=== PATIENT | male | born 2000 | race Caucasian/White ===

== ENCOUNTER → 2022-06-25 20:30 | Outpatient (REF) | payer MEDICAID, SELFPAY | LOC: HO.SL 20:30 | PROVIDERS: PCP Internal Medicine Geriatric Medicine; Visit Provider Internal Medicine Geriatric Medicine | DX: G47.33 Obstructive sleep apnea (adult) (pediatric) (principal) | CPT/HCPCS: 95811 ==

== ENCOUNTER 2022-10-16 14:35 | Outpatient (REF) | payer MEDICAID, SELFPAY ==
[2022-10-16 16:15] LABS: MANUAL DIFF FLAG NO
[2022-10-16 16:32] LABS: Basophils Percent Auto 0.8 % (0-2); Eosinophils Absolute Auto 0.1 X10*3/uL (0.0-0.4); Eosinophils Percent Auto 1.5 % (0-4); Hemoglobin 13.1 g/dl (14.0-18.0); Imm Gran Abs Auto 0.05 X10*3/uL (0.00-0.03); Lymphocytes Absolute Auto 2.1 X10*3/uL (1.2-4.9); Lymphocytes Percent Auto 43.6 % (20-40); Mean Corpuscular HGB Conc 29.8 g/dl (31.0-36.0); Mean Corpuscular Hemoglobin 21.1 pg (27.0-33.0); Mean Corpuscular Volume 70.9 fL (80.0-98.0); Mean Platelet Volume 11.2 fL (9.4-12.4); Monocytes Absolute Auto 0.4 X10*3/uL (0.1-1.2); Neutrophils Absolute Auto 2.1 x10*3/uL (2.0-8.3); Neutrophils Percent Auto 44.1 % (45-73); Platelet Count 287 X10*3/uL (160-400); Red Blood Count 6.21 X10*6/uL (4.60-5.80); Red Cell Distribution Width 16.6 % (11.0-16.0); White Blood Count 4.8 X10*3/uL (4.8-10.8)
[2022-10-16 18:28] LABS: Alanine Aminotransferase 47 U/L (0-40); Albumin Level 4.4 g/dL (3.5-5.0); Alkaline Phosphatase 95 U/L (39-117); Anion Gap 15 (12-20); Aspartate Amino Transferase 28 U/L (5-37); Bilirubin Total 0.4 mg/dL (0.0-1.0); Blood Urea Nitrogen 10 mg/dL (9-16); Calcium 9.8 mg/dL (8.4-10.2); Carbon Dioxide 24 mmol/L (22-29); Chloride 104 mmol/L (96-108); Cholesterol 171 mg/dL; Estimated Glomerular Filt Rate > 60; Glucose Random 93 mg/dL (60-115); HDL Cholesterol 45 mg/dL; LDL Cholesterol Calculated 96 mg/dl; Potassium 4.1 mmol/L (3.3-5.1); Sodium 139 mmol/L (135-145); Total Protein 7.7 g/dL (6.5-8.0); Triglycerides 152 mg/dL
[2022-10-16 18:46] LABS: TSH reflex Free T4 2.69 uIU/mL (0.32-4.0)
== END 2022-10-16 14:36 | disposition home or self-care (01) ==
LOC: HO.HHCL 14:35
PROVIDERS: Visit Provider Internal Medicine Geriatric Medicine
DX: Z13.220 Encounter for screening for lipoid disorders (principal); Z13.1 Encounter for screening for diabetes mellitus; E66.01 Morbid (severe) obesity due to excess calories
CPT/HCPCS: 36415; 80053; 80061; 84443; 85025

== ENCOUNTER 2024-03-27 11:38 | Outpatient (REF) | payer MEDICAID, SELFPAY ==
[2024-03-27 15:28] LABS: CT PCR NOT DETECTED (Not Detect.); NG PCR NOT DETECTED (Not Detect.)
== END 2024-03-27 11:39 | disposition home or self-care (01) ==
LOC: HO.HHCL 11:38
PROVIDERS: Visit Provider Internal Medicine Geriatric Medicine
DX: Z00.00 Encounter for general adult medical examination without abnormal findings (principal); Z11.3 Encounter for screening for infections with a predominantly sexual mode of transmission
CPT/HCPCS: 87491; 87591

== ENCOUNTER 2024-03-30 10:16 | Outpatient (REF) | payer MEDICAID, SELFPAY ==
[2024-03-30 11:37] LABS: MANUAL DIFF FLAG NO
[2024-03-30 11:41] LABS: Basophils Percent Auto 0.7 % (0-2); Eosinophils Absolute Auto 0.1 X10*3/uL (0.0-0.4); Eosinophils Percent Auto 1.9 % (0-4); Hematocrit 40.4 % (42.0-52.0); Hemoglobin 12.7 g/dl (14.0-18.0); Imm Gran Abs Auto 0.06 X10*3/uL (0.00-0.03); Imm Gran Pct Auto 1.1 % (0.0-0.4); Mean Corpuscular HGB Conc 31.4 g/dl (31.0-36.0); Mean Corpuscular Hemoglobin 21.5 pg (27.0-33.0); Mean Corpuscular Volume 68.2 fL (80.0-98.0); Mean Platelet Volume 10.6 fL (9.4-12.4); Monocytes Absolute Auto 0.5 X10*3/uL (0.1-1.2); Monocytes Percent Auto 9.2 % (2-11); Neutrophils Percent Auto 52.1 % (45-73); Platelet Count 252 X10*3/uL (160-400); Red Blood Count 5.92 X10*6/uL (4.60-5.80); Red Cell Distribution Width 16.1 % (11.0-16.0); White Blood Count 5.7 X10*3/uL (4.8-10.8)
[2024-03-30 12:16] LABS: Alanine Aminotransferase 43 U/L (0-40); Albumin Level 4.3 g/dL (3.5-5.0); Alkaline Phosphatase 99 U/L (39-117); Anion Gap 11 (12-20); Aspartate Amino Transferase 25 U/L (5-37); Bilirubin Total 0.2 mg/dL (0.0-1.0); Blood Urea Nitrogen 13 mg/dL (9-16); Calcium 8.7 mg/dL (8.4-10.2); Carbon Dioxide 23 mmol/L (22-29); Chloride 108 mmol/L (96-108); Cholesterol 159 mg/dL (<200); Estimated Glomerular Filt Rate > 60; Glucose Random 104 mg/dL (60-115); HDL Cholesterol 47 mg/dL (>40); LDL Cholesterol Calculated 90 mg/dL (<100); Sodium 138 mmol/L (135-145); Total Protein 7.6 g/dL (6.5-8.0); Triglycerides 114 mg/dL (<150)
[2024-03-30 12:35] LABS: HBS Num1 1.79 mIU/mL (0-7.99); HBsAGNum1 0.41 S/CO (0.00-0.99); HIV AB/AG Nonreactive (Nonreactive); HIV Num 1 0.07 S/CO (0.00-0.99); Hepatitis B Surface Antigen Negative (Negative); ~HepC Num1 0.11 S/CO (0.00-0.79); ~Hepatitis B Surface Antibody NONREACTIVE (Nonreactive); ~Hepatitis C Antibody Nonreactive (Nonreactive)
[2024-03-30 13:50] LABS: TSH reflex Free T4 2.65 uIU/mL (0.32-4.0)
== END 2024-03-30 10:17 | disposition home or self-care (01) ==
LOC: HO.HHCL 10:16
PROVIDERS: Visit Provider Internal Medicine Geriatric Medicine
DX: Z00.00 Encounter for general adult medical examination without abnormal findings (principal)
CPT/HCPCS: 36415; 80053; 80061; 84443; 85025; 86592; 86706; 86803; 87340; 87389

== ENCOUNTER 2024-03-31 09:30 | Outpatient (REF) | payer MEDICAID, SELFPAY ==
[2024-04-02 13:18] LABS: RPR Rapid Plasma Reagin NON-REACTIVE (NON-REACTIVE)
== END 2024-03-31 09:31 | disposition home or self-care (01) ==
LOC: HO.HHCL 09:30
PROVIDERS: Visit Provider Internal Medicine Geriatric Medicine
DX: Z00.00 Encounter for general adult medical examination without abnormal findings (principal)
CPT/HCPCS: 36415; 86592

== ENCOUNTER 2024-08-03 12:48 | Outpatient (REF) | payer MEDICAID, SELFPAY ==
--- OUTSIDE RECORDS SUMMARY | 2024-08-03 15:08 | XMS_ITS | Encounter Summary ---
Author Organization [employer] Address [address] [place] [address] 7 [place] [address] Care Team Providers Care Capital Project Engineer Name Role Phone Name, Sky FONSECA Primary Care Provider [phone] Hugo Bacon Unavailable Unavailable Reason for Visit * Reason Onset Date Comments Med Refill 07/22/2024 Encounter Details Date Type Department Care Team (Late st Contact Info) Description 07/22/2024 Telephone [facility] MEDICINE [address] [place] [address] Name, MD Sky [address] [place] [address] Med Refill Social History Tobacco Use Types Packs/Day Years Used Date Smoking Tobacco: Former Cigarettes Smokeless Tobacco: Never Alcohol Use Standard Drinks/Week Comments Yes 0 (1 standard drink = 0.6 oz pur e alcohol) socially Depression Answer Date Recorded Patient Health Questionnaire-9 Score 0 10/17/2023 Patient Health Questionnaire-9 Score 0 10/17/2023 Last PHQ-9: Questionnaire Data Not on file 0 10/17/2023 Housing Stability Answer Date Recorded What is your housing situation today? I have bill quentin 01/21/[address] you li ve. Do you have problems with any of the following? None of the above 01/21/2023 Food Insecurity Answer Date Recorded Within the past 12 months, y ou worried that your food would run out before you got money to buy more: Never True 01/21/2023 Within the past 12 months,th e food you bought just didn't last and you didn't have enough money to get more: Never True Transportation Answer Date Recorded In the past 12 months, has l ack of transportation kept you from medical appts, meetings, work or from getting things needed for daily living? No 01/21/2023 Utilities Answer Date Recorded In the past 12 months, has t he electric, gas, oil or water company threatened to shut off services in your home? No 01/21/2023 Depression Answer Date Recorded Patient Health Questionnaire-2 Score 0 10/17/2023 Sex and Gender Information Value Date Recorded Sex Assigned at Male 02/05/2022 10:19 AM EDT Legal Sex Male 10:19 AM EDT Gender Identity Male 02/05/2022 10:19 AM EDT Sexual Orientation Straight 02/05/2022 10 :19 AM EDT documented as of this encounter Miscellaneous Notes * Telephone Encounter - Juliann Grimes LPN - 07/22/2024 11:59 AM EDT Medication to soon for refill CLIENT STRATEGIST checked on 07/22/24 last filled on 06/30/24 #30. * Telephone Encounter - Nicole Auguste - 07/22/2024 11:54 AM EDT TC from pt requesting medication refill. Medications needing refill : Concerta 54 MG CR tablet To be sent to: [facility] documented in this encounter Plan of Treatment Upcoming Encounters Date Type Department Care Team (Late st Contact Info) Description 02/04/2025 1:00 PM EDT Office Visit [facility] ADULT DENTAL [address] [facility] [place] [address] Corinne Jefferson documented as of this encounter Visit Diagnoses Not on filedocumented in this encounter Additional Health Concerns Assessment Noted Time PHQ-9 Depression Total Score: 0 10/17/19 24 3:53 PM EDT documented as of this encounter Care Teams Capital Project Engineer Relationship Specialty Start Date End Date Name, MD Sky [address] [place] [address] PCP - General Family Medicine 11/24/18 Hugo Bacon FNP [address] [place] [address] Nurse Practitioner Family Medicine 03/04/23 documented as of this encounter
--- OUTSIDE RECORDS SUMMARY | 2024-08-03 15:08 | XMS_ITS | Encounter Summary ---
Author Organization [employer] Address [address] [place] [address] 7 [place] [address] Care Team Providers Care Roller Name Role Phone Name, Sky FONSECA Primary Care Provider [phone] Hugo Bacon Unavailable Unavailable Reason for Visit * Reason Onset Date Comments CHART PREP 07/31/2024 Encounter Details Date Type Department Care Team ([facility] st Contact Info) Description 07/31/2024 Telephone [facility] MEDICINE [address] [place] [address] Name, MD Sky [address] [place] [address] CHART PREP Social History Tobacco Use Types Packs/Day Years [...] your housing situation today? I have bill saavedra 01/21/[address] you li [...] encounter Miscellaneous Notes * Telephone Encounter - Arelis Herrera MA - 07/31/2024 11:26 AM EDT Chart Prep Labs: not done from 04/03/24 called pt for a lab reminder pt stated will do hem on Saturday Images: not applicable Referrals: not applicable Vaccines due: yes He B, Pneumo Screenings: not applicable Overdue care gaps: SDOH, PHQ-9, BEAU-7, and Disability screen documented in this encounter Plan of Treatment Upcoming Encounters Date Type Department Care Team (Late st Contact Info) Description 02/04/2025 1:00 PM EDT Office Visit [facility] ADULT DENTAL [address] [place] [address] Corinne Jefferson documented as of this encounter Visit Diagnoses Not on filedocumented in this encounter Additional Health Concerns Assessment Noted Time PHQ-9 Depression Total Score: 0 10/17/19 24 3:53 PM EDT documented as of this encounter Care Teams Roller Relationship Specialty Start Date End Date Name, MD Sky [address] [place] [address] PCP - General Family Medicine 11/24/18 Hugo Bacon FNP [address] [facility] [place] [address] Nurse Practitioner Family Medicine 03/04/23 documented as of this encounter
--- OUTSIDE RECORDS SUMMARY | 2024-08-03 15:08 | XMS_ITS | Encounter Summary ---
Author Organization [facility] Address [address] [place] [address] Care Team Providers Care Blender / Cook Name Role Phone Name, Sky FONSECA Primary Care Provider [phone] Hugo Bacon Unavailable Unavailable Encounter Details Date Type Department Care Team (Latest Contact Info) Description 03/18/2019 Abstract [facility] CONVERSIONS Dental, Provider, DDS Social History Tobacco Use Types Packs/Day Years Used Date Smoking Tobacco: Never Assessed Sex and Gender Information Value Date Recorded Sex Assigned at Male 02/05/2022 10:19 AM EDT Legal Sex Male 10:19 AM EDT Gender Identity Male 02/05/2022 10:19 AM EDT Sexual Orientation Straight 02/05/2022 10 :19 AM EDT documented as of this encounter Plan of Treatment Upcoming Encounters Date Type Department Care Team (Late st Contact Info) Description 02/04/2025 1:00 PM EDT Office Visit [facility] ADULT DENTAL [address] [place] [address] Corinne Jefferson documented as of this encounter Visit Diagnoses Not on filedocumented in this encounter Care Teams Blender / Cook Relationship Specialty Start Date End Date Name, MD Sky [address] [place] [address] PCP - General Family Medicine 11/24/18 Hugo Bacon FNP [address] [place] [address] Nurse Practitioner Family Medicine 03/04/23 documented as of this encounter
--- OUTSIDE RECORDS SUMMARY | 2024-08-03 15:08 | XMS_ITS | Clinical Summary ---
Author Organization [facility] Address [address] [place] [address] Care Team Providers Care Scientific Informatics Analyst Name Role Phone Unavailable Primary Care Provider Unavailabl e Source Comments PLEASE NOTE, if this patient is a minor, it may be UNLAWFUL to discuss sensitive information that is contained in these records (such as FAMILY PLANNING, MENTAL HEALTH or SUBSTANCE ABUSE) with the minor patient's parent or other person without the patient's specific authorization.[facility] Allergies Active Allergy Reactions Criticality Noted Date Comments Aspirin 12/24/2023 Penicillins 12/24/2023 Medications acetaminophen (TYLENOL) 500 mg tablet Take 500 mg by mouth every 4 to 6 (four to six) hours as needed 4 Active albuterol HFA 90 mcg/actuation inhaler Inhale 2 Puffs into the lungs every 4 (four) hours 2 Active methylphenidate HCl 18 mg ER tabletIndications: Attention deficit hyperactivity disorder (ADHD), predominantly inattentive type Take 1 tab po q afternoon 30 Tablet 4 Active methylphenidate HCl 54 mg ER tabletIndications: Attention deficit hyperactivity disorder (ADHD), predominantly inattentive type Take 1 Tablet by mouth every morning before breakfast 30 Tablet 4 Active Active Problems Problem Noted Date Diagnosed Date Attention deficit disorder 03/11/2023 Overview (11/26/2023): Last Assessment & Plan: Symptoms began in childhood, occur in multiple settings. Never treated. Strong family history attention problems. R/O mood disorder, with some days awakens without motivation, other times can clean the room at 2 am. Also appetite varies markedly from day to day. Student at [employer], more challenging academic environment. Has worked with student support services. He found the Guanfacine 1 mg at bedtime helps him sleep and wake up refreshed, but it has not helped his concentration or attention. Strattera was not helpful. Had partial response to Methylphenidate ER 20 mg once daily in the morning, will now increase to Methylphenidate ER 36 mg daily Reviewed that this was a controlled substance, if lost or stolen would not be replaced. Do not share with others. Take in the morning only to avoid sleep problems, and have a nutritious meal prior to dose. Continue with student support services. Since this provider will be retiring, patient will be referred to new [facility] psychiatric prescriber. Patient is aware these appointments will also be via televisits, and that the provider is not employed by [facility]. He gives verbal permission to share protected health information. Any issues or concerns call the health center. All his questions were answered and I have wished him well. He agrees with the plan. Assessment & Plan (03/20/2024 10:07 AM EST): A: stable PLAN: Will adjust methylphenidate to 56 mg and 18 mg, highest FDA approved dose for ADHD. Pt to transfer care back to PCP at [facility]. Assessment & Plan (02/18/2024 3:38 PM EST): A: worsening of sxs on lower dose bid. PLAN: continue methylphenidate 54 mg qam and 36 mg q afternoon for ADHD. Monitor blood pressure. Assessment & Plan (01/21/2024 10:57 AM EDT): Some improvement but feels med wearing off around noon, still. Will provide 36 mg po qam and q 1 pm. Assessment & Plan (12/24/2023 9:33 AM EDT): Some improvement but feels med wearing off around noon. Will increase dose and reassess in 4 weeks. Concerta 54 mg po qam. Assessment & Plan (11/28/2023 4:32 PM EDT): Treat ADHD, wants to succeed academically. Med helpful for now; unsure if adequate with studies- will see once school starts. Pt declines therapy at this time. Mild intermittent asthma ([facility]) 09/19/2022 Morbid obesity ([facility]) 09/19/2022 Assessment & Plan (01/21/2024 10:57 AM EDT): Walking, taking stairs instead of elevators, eating healthy food. JAMEL (obstructive sleep apnea) 09/19/2022 Assessment & Plan (01/21/2024 10:56 AM EDT): Wearing c-pap nightly with good effect Assessment & Plan (12/24/2023 9:32 AM EDT): Wearing c-pap nightly with good effect Anemia 09/19/2022 Acne 09/19/2022 Mixed anxiety and depressive disorder 09/19/2022 Assessment & Plan (01/21/2024 10:58 AM EDT): Stable at this time. Will continue therapy, self care. Monitor for SAD [per pt hx]. Assessment & Plan (12/24/2023 9:31 AM EDT): Stable at this time. Will continue therapy, self care. Monitor for SAD [per pt hx]. Assessment & Plan (11/28/2023 4:32 PM EDT): Denies current depressed mood, no acute anxiety. Will monitor. Social History Tobacco Use Types Packs/Day Years Used Date Smoking Tobacco: Never Assessed Social Connections Answer Date Recorded Connectedness 0 12/24/2023 Financial Resource Strain Answer Date R ecorded Financial Resource Strain 0 2023 Stress Answer Date Recorded Stress 0 11/19/2023 Physical Activity Answer Date Recorded Physical Activity 0 11/19/2023 Food Insecurity Answer Date Recorded Food 0 01/02/2024 Transportation Needs Answer Date Record ed Transportation 0 11/19/2023 Housing Stability Answer Date Recorded Housing 0 11/19/2023 Safety and Environment Answer Date [place] rded Safety 0 11/19/2023 Utilities Answer Date Recorded Utilities 0 11/19/2023 Employment Answer Date Recorded Stress 0 12/24/2023 Sex and Gender Information Value Date Recorded Sex Assigned at Male 11/19/2023 7:30 AM PDT Legal Sex Male 7:30 AM PDT Gender Identity Male 11/19/2023 7:30 AM PDT Sexual Orientation Not on file Plan of Treatment Health Maintenance Due Date Last Done Comments Anxiety Screening 1999 Depression Monitoring 1999 Hepatitis C Screening 1999 Tobacco Screening 1999 Imm-Varicella (1 of 2 - 13+ 2-dose series) 2012 Imm-HPV (1 - Male 3-dose series) 2014 Hypertension Screening (#1) 2017 Imm-DTaP/Tdap/Td (1 - Tdap) 2018 Imm-Hepatitis B (1 of 3 - 19 + 3-dose series) 2018 Imm-Pneumococcal (1 of 2 - PCV) 2018 [id number] ( - season) 2023 021, 03/14/2021 Imm-Influenza (#1) 2023 Alcohol and Drug Screen 04/08/2024 HIV Screening Completed 09/21/2021, 09/21/2021 Insurance [place] [facility]
--- OUTSIDE RECORDS SUMMARY | 2024-08-03 15:08 | XMS_ITS | Encounter Summary ---
Author Organization [employer] [facility] Address [address] [place] [address] Care Team Providers Care Didactic Instructor Name Role Phone Name, Sky FONSECA Primary Care Provider [phone] Hugo Bacon Unavailable Unavailable Encounter Details Date Type Department Care Team (Latest Contact Info) Description 12/29/2018 Abstract [facility] CONVERSIONS Dental, Provider, DDS Social History Tobacco [...] Description 02/04/2025 1:00 PM EDT Office Visit [facility] ADULT DENTAL [address] [place] [address] Corinne Jefferson documented as of this encounter Visit Diagnoses Not on filedocumented in this encounter Care Teams Didactic Instructor Relationship Specialty Start Date End Date Name, MD Sky [address] [place] [address] PCP - General Family Medicine 11/24/18 Hugo Bacon FNP [address] [place] [address] Nurse Practitioner Family Medicine 03/04/23 documented as of this encounter
--- OUTSIDE RECORDS SUMMARY | 2024-08-03 15:08 | XMS_ITS | Encounter Summary ---
Author Organization [employer] Address [address] [place] [address] 7 [place] [address] Care Team Providers Care Videogame Tester Name Role Phone Name, Sky FONSECA Primary Care Provider [phone] Hugo Bacon Unavailable Unavailable Reason for Visit * Reason Comments Follow-up Encounter Details Date Type Department Care Team ([facility] st Contact Info) Description 08/03/2024 1:45 PM EDT Office Visit [facility] MEDICINE [address] [place] [address] Name, MD Sky [address] [place] [address] Mild intermittent asthma without complication (Primary Dx); JAMEL (obstructive sleep apnea); Morbid obesity (CMS/HCC); Anemia, unspecified type; Attention deficit disorder, unspecified type Social History Tobacco Use Types Packs/Day Years Used Date Smoking Tobacco: Former Cigarettes Smokeless Tobacco: Never Tobacco Cessation:Counseling Given: Not Answered Alcohol Use Standard Drinks/Week Comments Yes 0 (1 standard drink = 0.6 oz pur e alcohol) socially Depression Answer Date Recorded Patient Health Questionnaire-9 Score 0 10/17/2023 Patient Health Questionnaire-9 Score 0 10/17/2023 Last PHQ-9: Questionnaire Data Not on file 0 10/17/2023 Housing Stability Answer Date Recorded What is your housing situation today? I have bill saavedra 08/03/[address] you li ve. Do you have problems with any of the following? None of the above 08/03/2024 Food Insecurity Answer Date Recorded Within the past 12 months, y ou worried that your food would run out before you got money to buy more: Never True 08/03/2024 Within the past 12 months,th e food you bought just didn't last and you didn't have enough money to get more: Never True Transportation Answer Date Recorded In the past 12 months, has l ack of transportation kept you from medical appts, meetings, work or from getting things needed for daily living? I am not sure 08/03/2024 Utilities Answer Date Recorded In the past 12 months, has t he [employer], gas, oil or water company threatened to shut off services in your home? No 08/03/2024 Depression Answer Date Recorded Patient Health Questionnaire-2 Score 0 10/17/2023 Internet Access Answer Date Recorded Internet Access Q1 Yes 08/03/2024 Internet Access Q2 Not on file 08/03/2024 Sex and Gender Information Value Date Recorded Sex Assigned at Male 02/05/2022 10:19 AM EDT Legal Sex Male 10:19 AM EDT Gender Identity Male 02/05/2022 10:19 AM EDT Sexual Orientation Straight 02/05/2022 10 :19 AM EDT documented as of this encounter Last Filed Vital Signs Vital Sign Reading Time Taken Comments Blood Pressure 135/85 08/03/2024 1:34 PM EDT Pulse 83 08/03/2024 1:34 PM EDT Temperature 36.8 ??C (98.2 ??F) 08/03/2024 1:34 PM ED T Respiratory Rate 18 08/03/2024 1:34 PM EDT Oxygen Saturation 98% 08/03/2024 1:34 PM EDT Inhaled Oxygen Concentration - - Weight 135 kg (296 lb 12.8 oz) 08/03/2024 1:34 P M EDT Height 165.1 cm (5' 5 ) 08/03/2024 1:34 PM EDT Body Mass Index 49.39 08/03/2024 1:34 PM EDT documented in this encounter Progress Notes * Sky Dean MD - 08/03/2024 1:45 PM EDT Subjective Patient ID: Mata Weaver is a 24 y.o. male who presents for Follow-up. Patient comes for a follow-up visit. He feels well. The only medication he is using regularly is Concerta for ADD. The patient has morbid obesity and obstructive sleep apnea. The patient uses his CPAP nightly with significant improvement of daytime sleepiness and energy levels. We have discussed treatment with GLP-1 to help him with morbid obesity but so far he is reluctant to use any medication.He does not have any personal or family history of thyroid cancer. He does not have any personal history of pancreatitis. We discussed the results of his most recent blood work. He had mild anemia. I ordered further testing that he had done earlier today and results are not available. He does not have any GI complaints.No blood in stool or black stool. He tells me he has issues with mild anemia since childhood. The patient has asthma that is quite mild. He rarely uses albuterol and asked me for a refill and Iagree. He denies significant allergy symptoms. Review of Systems Constitutional: Negative for chills, fatigue and fever. HENT: Negative for sore throat. Respiratory: Negative for cough, chest tightness and shortness of breath. Cardiovascular: Negative for chest pain, palpitations and leg swelling. Gastrointestinal: Negative for abdominal pain and blood in stool. Visit Vitals BP 135/85 (BP Location: Left arm, Patient Position: Sitting, BP Cuff Size: Large adult) Pulse 83 Temp 98.2 ??F (36.8 ??C) (Temporal) Resp 18 Ht 5' 5 (1.651 m) Wt 296 lb 12.8 oz (135 kg) SpO2 98% BMI 49.39 kg/m?? Smoking Status Former BSA 2.49 m?? Objective Physical Exam Constitutional: Appearance: Normal appearance. He is obese. Cardiovascular: Rate and Rhythm: Normal rate and regular rhythm. Heart sounds: No murmur heard. Pulmonary: Effort: Pulmonary effort is normal. No respiratory distress. Breath sounds: No wheezing, rhonchi or rales. Abdominal: Palpations: Abdomen is soft. Tenderness: There is no abdominal tenderness. Musculoskeletal: Right lower leg: No edema. Left lower leg: No edema. Neurological: Mental Status: He is alert. Assessment/Plan Diagnoses and all orders for this visit: Mild intermittent asthma without complication Comments: I refilled albuterol to use as needed. He rarely uses the medication. I did not prescribe preventive inhaler for now. JAMEL (obstructive sleep apnea) Comments: Continue using CPAP as he has been doing. We discussed importance of weight loss. He is not interested in trying GLP-1 for now. Morbid obesity (CMS/HCC) Comments: See above Anemia, unspecified type Comments: Mild. He had further testing done this morning and I will contact him with the results. Attention deficit disorder, unspecified type Comments: Continue current dose of Concerta. Other orders - albuterol 108 (90 Base) MCG/ACT inhaler; Inhale 2 puffs every 4 (four) hours. documented in this encounter Plan of Treatment Upcoming Encounters Date Type Department Care Team (Late st Contact Info) Description 02/04/2025 1:00 PM EDT Office Visit [facility] ADULT DENTAL [address] [place] [address] Corinne Jefferson documented as of this encounter Visit Diagnoses Diagnosis Mild intermittent asthma without complication- Primary JAMEL (obstructive sleep apnea) Obstructive sleep apnea (adult) (pediatric) Morbid obesity (CMS/HCC) Morbid obesity Anemia, unspecified type Attention deficit disorder, unspecified type documented in this encounter Additional Health Concerns Assessment Noted Time PHQ-9 Depression Total Score: 0 10/17/19 24 3:53 PM EDT documented as of this encounter Care Teams Videogame Tester Relationship Specialty Start Date End Date Sky Dean MD [address] [place] [address] PCP - General Family Medicine 11/24/18 Hugo Bacon FNP [address] [place] [address] Nurse Practitioner Family Medicine 03/04/23 documented as of this encounter
--- OUTSIDE RECORDS SUMMARY | 2024-08-03 15:08 | XMS_ITS | Encounter Summary ---
Author Organization [employer] Address [address] [facility] [address] [place] [address] Care Team Providers Care Figure Clerk Name Role Phone Name, Sky FONSECA Primary Care Provider [phone] Hugo Bacon Unavailable Unavailable Encounter Details Date Type Department Care Team (Latest Contact Info) Description 08/03/2024 Travel Social History Tobacco Use Types Packs/Day Years [...] Description 02/04/2025 1:00 PM EDT Office Visit [facility] ADULT DENTAL [address] [place] [address] Corinne Jefferson documented as of this encounter Visit Diagnoses Not on filedocumented in this encounter Additional Health Concerns Assessment Noted Time PHQ-9 Depression Total Score: 0 10/17/19 24 3:53 PM EDT documented as of this encounter Care Teams Figure Clerk Relationship Specialty Start Date End Date Name, MD Sky [address] [place] [address] PCP - General Family Medicine 11/24/18 Hugo Bacon FNP [address] [place] [address] Nurse Practitioner Family Medicine 03/04/23 documented as of this encounter
--- OUTSIDE RECORDS SUMMARY | 2024-08-03 15:08 | XMS_ITS | Encounter Summary ---
Author Organization [employer] Address [address] [place] [address] 7 [place] [address] Care Team Providers Care Disability Aide Name Role Phone Name, Sky FONSECA Primary Care Provider [phone] Hugo Bacon Unavailable Unavailable Reason for Visit * Reason Onset Date Comments Med Refill 07/20/2024 Encounter Details Date Type Department Care Team (Late st Contact Info) Description 07/20/2024 Refill [facility] MEDICINE [address] [place] [address] Name, MD Sky [address] [place] [address] Social History Tobacco Use Types Packs/Day Years [...] Description 02/04/2025 1:00 PM EDT Office Visit [facility] ADULT DENTAL [address] [place] [address] Corinne Jefferson documented as of this encounter Visit Diagnoses Not on filedocumented in this encounter Additional Health Concerns Assessment Noted Time PHQ-9 Depression Total Score: 0 10/17/19 24 3:53 PM EDT documented as of this encounter Care Teams Disability Aide Relationship Specialty Start Date End Date Name, MD Sky [address] [place] [address] PCP - General Family Medicine 11/24/18 Hugo Bacon FNP [address] [place] [address] Nurse Practitioner Family Medicine 03/04/23 documented as of this encounter
--- OUTSIDE RECORDS SUMMARY | 2024-08-03 15:08 | XMS_ITS | Encounter Summary ---
Author Organization [employer] Address [address] [place] [address] 7 [place] [address] Care Team Providers Care General Manager [employer] Name Role Phone Name, Sky FONSECA Primary Care Provider [phone] Hugo Bacon Unavailable Unavailable Encounter Details Date Type Department Care Team ([facility] st Contact Info) Description 01/30/2023 Abstract [facility] MEDICINE [address] [place] [address] Name, MD Sky [address] [place] [address] Social History Tobacco Use Types Packs/Day Years Used Date Smoking Tobacco: Never Smokeless Tobacco: Never Alcohol Use Standard Drinks/Week Comments Yes 0 (1 standard drink = 0.6 oz pur e alcohol) socially Depression Answer Date Recorded Patient Health Questionnaire-9 Score 0 09/19/2022 Housing Stability Answer Date Recorded What is [...] Date Recorded Patient Health Questionnaire-2 Score 0 09/19/2022 Sex and Gender Information Value Date Recorded Sex Assigned at Male 02/05/2022 10:19 AM EDT Legal Sex Male 10:19 AM EDT Gender Identity Male 02/05/2022 10:19 AM EDT Sexual Orientation Straight 02/05/2022 10 :19 AM EDT documented as of this encounter Plan of Treatment Upcoming Encounters Date Type Department Care Team (Late st Contact Info) Description 02/04/2025 1:00 PM EDT Office Visit [facility] ADULT DENTAL [address] [place] [address] Corinne Jefferson documented as of this encounter Visit Diagnoses Not on filedocumented in this encounter Additional Health Concerns Assessment Noted Time PHQ-9 Depression Total Score: 0 09/20/19 23 2:14 PM EDT documented as of this encounter Care Teams General Manager [employer] Relationship Specialty Start Date End Date Name, MD Sky [address] [place] [address] PCP - General Family Medicine 11/24/18 Hugo Bacon FNP [address] [place] [address] Nurse Practitioner Family Medicine 03/04/23 documented as of this encounter
--- OUTSIDE RECORDS SUMMARY | 2024-08-03 15:08 | XMS_ITS | Encounter Summary ---
Author Organization [facility] Address [address] [place] [address] Care Team Providers Care Licensed Therapist Name Role Phone Name, Sky FONSECA Primary Care Provider [phone] Hugo Bacon Unavailable Unavailable Encounter Details Date Type Department Care Team (Latest Contact Info) Description 11/21/2018 Abstract [facility] CONVERSIONS Dental, Provider, DDS Social History [...] Description 02/04/2025 1:00 PM EDT Office Visit [facility] ADULT DENTAL [address] [place] [address] Corinne Jefferson documented as of this encounter Visit Diagnoses Not on filedocumented in this encounter Care Teams Licensed Therapist Relationship Specialty Start Date End Date Name, MD Sky [address] [place] [address] PCP - General Family Medicine 11/24/18 Hugo Bacon FNP [address] [place] [address] Nurse Practitioner Family Medicine 03/04/23 documented as of this encounter
--- OUTSIDE RECORDS SUMMARY | 2024-08-03 15:08 | XMS_ITS | Encounter Summary ---
Author Organization [employer] Address [address] [place] [address] 7 [place] [address] Care Team Providers Care Aeronautical Products Sales Engineer Name Role Phone Name, Sky FONSECA Primary Care Provider [phone] Hugo Bacon Unavailable Unavailable Reason for Visit * Reason Onset Date Comments Med Refill 07/22/2024 Encounter Details Date Type Department Care Team (Late st Contact Info) Description 07/22/2024 Refill [facility] MEDICINE [address] [place] [address] Name, MD Sky [address] [place] [address] Social History Tobacco Use Types Packs/Day Years [...] Description 02/04/2025 1:00 PM EDT Office Visit [facility] ADULT DENTAL [address] [place] [address] Corinne Jefferson documented as of this encounter Visit Diagnoses Not on filedocumented in this encounter Additional Health Concerns Assessment Noted Time PHQ-9 Depression Total Score: 0 10/17/19 24 3:53 PM EDT documented as of this encounter Care Teams Aeronautical Products Sales Engineer Relationship Specialty Start Date End Date Name, MD Sky [address] [place] [address] PCP - General Family Medicine 11/24/18 Hugo Bacon FNP [address] [place] [address] Nurse Practitioner Family Medicine 03/04/23 documented as of this encounter
--- OUTSIDE RECORDS SUMMARY | 2024-08-03 15:08 | XMS_ITS | Encounter Summary ---
Author Organization [employer] Address [address] [place] [address] 7 [place] [address] Care Team Providers Care Branch Service Representative Name Role Phone Name, Sky FONSECA Primary Care Provider [phone] Hugo Bacon Unavailable Unavailable Reason for Visit * Reason Onset Date Comments Med Refill 11/18/2023 Encounter Details Date Type Department Care Team (Late st Contact Info) Description 11/18/2023 Telephone [facility] MEDICINE [address] [place] [address] Name, MD Sky [address] [place] [address] Med Refill Social History Tobacco Use Types Packs/Day Years Used Date Smoking Tobacco: Some Days Cigarettes Smokeless Tobacco: Never Alcohol Use Standard [...] Telephone Encounter - Juliann Grimes LPN - 11/18/2023 2:01 PM EDT Medication to soon for refill sold on 10/31/23. * Telephone Encounter - Thomas Herndon - 11/18/2023 1:57 PM EDT TC from pt requesting medication refill. Medications needing refill : Methylphenidate HCl (methylphenidate ER) 36 MG 24 hr tablet To be sent to: [facility] documented in this encounter Plan of Treatment Upcoming Encounters Date Type Department Care Team (Late st Contact Info) Description 02/04/2025 1:00 PM EDT Office Visit [facility] ADULT DENTAL [address] [place] [address] Corinne Jefferson documented as of this encounter Visit Diagnoses Not on filedocumented in this encounter Additional Health Concerns Assessment Noted Time PHQ-9 Depression Total Score: 0 10/17/19 3:53 PM EDT documented as of this encounter Care Teams Branch Service Representative Relationship Specialty Start Date End Date Name, MD Sky [address] [place] [address] PCP - General Family Medicine 11/24/18 Hugo Bacon FNP [address] [place] [address] Nurse Practitioner Family Medicine 03/04/23 documented as of this encounter
--- OUTSIDE RECORDS SUMMARY | 2024-08-03 15:08 | XMS_ITS | Clinical Summary ---
Author Organization [employer] Address [address] [facility] 7t [place] [address] Care Team Providers Care Camp Head Counselor Name Role Phone Name, Sky FONSECA Primary Care Provider [phone] Hugo Bacon Unavailable Unavailable Allergies Active Allergy Reactions Criticality Noted Date Comments Aspirin 11/21/2018 Penicillins 11/21/2018 Medications * This document contains information received from the source organization and may not represent a complete record from that organization. cholecalcifero l (Vitamin D-3) 50 MCG (1999) capsule Take 1 capsule by mouth at bed time. 09/23/19 22 Active Concerta 54 MG CR tablet Take 1 tablet (54 mg) by mouth in the morning. 30 tablet 07/30/19 25 Active albuterol 108 (90 Base) MCG/ACT inhaler Inhale 2 puffs every 4 (four) hours. 18 g 2 08/04/19 25 Active albuterol 108 (90 Base) MCG/ACT inhaler Inhale 2 puffs every 4 (four) hours. 09/22/19 22 025 Discontinued(Re order (will not trigger notification to Pharmacy)) Concerta 54 MG CR tablet Take 1 tablet (54 mg) by mouth in the morning. 30 tablet 06/24/19 25 025 Discontinued(Re order (will not trigger notification to Pharmacy)) Active Problems Problem Noted Date Diagnosed Date Attention deficit disorder 03/11/2023 Assessment & Plan (10/17/2023 4:41 PM EDT): Symptoms began in childhood, occur in multiple settings. Never treated. Strong family history attention problems. R/O mood disorder, with some days awakens without motivation, other times can clean the room at 2 am. Also appetite varies markedly from day to day. Student at [employer], more challenging academic environment. Has worked with [...] retiring, patient will be referred to new [facility] psychiatric prescriber. Patient is aware these appointments will also be via televisits, and that the provider is not employed by [facility]. He gives verbal permission to share protected health information. Any issues or concerns call the health center. All his questions were answered and I have wished him well. He agrees with the plan. Assessment & Plan (09/09/2023 11:30 AM EDT): Symptoms began in childhood, occur in multiple settings. Never treated. Strong family history attention problems. R/O mood disorder, with some days awakens without motivation, other times can clean the room at 2 am. Also appetite varies markedly from day to day. Student at [employer], more challenging academic environment. Has worked with student support services. He found the Guanfacine 1 mg at bedtime helps him sleep and wake up refreshed, but it has not helped his concentration or attention. Strattera was not helpful. He has been using caffeine (coffee or caffeinated chocolates) with good effect that lasts 1- 2 hours. At this time will start Methylphenidate ER 20 mg once daily in the morning. Reviewed that this was a controlled substance, if lost or stolen would not be replaced. Do not share with others. Take in the morning only to avoid sleep problems, and have a nutritious meal prior to dose. Continue with student support services. F/U with me in approx 1 month, which will be our last appointment as I will be retiring. Patient will then be referred to new [facility] psychiatric prescriber. Patient is aware these appointments will also be via televisits, and that the provider is not employed by [facility]. He gives verbal permission to share protected health information. He agrees with the plan. Assessment & Plan (06/04/2023 9:37 AM EST): Symptoms began in childhood, occur in multiple settings. Never treated. Strong family history attention problems. R/O mood disorder, with some days awakens without motivation, other times can clean the room at 2 am. Also appetite varies markedly from day to day. Student at [employer], more challenging academic environment. Has reached out to student support services, suggest he F/U with them. Discussed medication, reviewed various classes of meds available to treat ADD. Prefer to avoid antidepressants and stimulants r/t risk of worsening irritability/mood instability. He has found the Guanfacine 1 mg at bedtime helps him sleep and wake up refreshed, but it has not helped his concentration or attention. Will start Strattera 18 mg in am, then BID. Cautioned about potential for increasing BP, recommend checking BP occasionally. Also reviewed sleep -- recommend evaluating for apnea events despite CPAP. Nutrition: Don't skip meals, increase protein spread throughout the day. Increase water, avoid juice and other concentrated sugars. We will prepare the letter for him for school. On 03/11/2023 provider informed pt that I would be retiring but we should be able to develop therapeutic plan before then. F/u with me in 6 weeks. He agrees with the plan. Assessment & Plan (03/25/2023 11:11 AM EST): Symptoms began in childhood, occur in multiple settings. Never treated. Strong family history attention problems. R/O mood disorder, with some days awakens without motivation, other times can clean the room at 2 am. Also appetite varies markedly from day to day. Student at [employer], more challenging academic environment. Has reached out to student support services, suggest he F/U with them. Discussed medication, reviewed various classes of meds available to treat ADD. Prefer to avoid antidepressants and stimulants r/t risk of worsening irritability/mood instability. Has started Guanfacine 1 mg at bedtime, hasn't yet added the am dose. He will do that now. Unfortunately school is out until mid-May so won't really be able to assess efficacy until then. Also continue working with therapist at [facility], and consider request for referral to agency prescriber. On 03/11/2023 provider informed pt that I would be retiring in approximately half year, but we should be able to develop therapeutic plan before then. F/u with me after school resumes in May. He agrees with the plan. Assessment & Plan (03/11/2023 11:11 AM EST): Symptoms began in childhood, occur in multiple settings. Never treated. Strong family history attention problems. R/O mood disorder, with some days awakens without motivation, other times can clean the room at 2 am. Also appetite varies markedly from day to day. Student at [employer], more challenging academic environment. Has reached out to student support services, suggest he F/U with them. Will start medication, reviewed various classes of meds available to treat ADD. Prefer to avoid antidepressants and stimulants r/t risk of worsening irritability/mood instability. Will have Guanfacine 1 mg starting at bedtime x 2 weeks, then BID. Also continue working with therapist at [facility], and consider request for referral to agency prescriber. Today 03/11/2023 provider informed pt that I would be retiring in approximately half year, but we should be able to develop therapeutic plan before then. F/u with me now in 2 weeks (prior to semester break). He agrees with the plan. Acne 09/19/2022 Anemia 09/19/2022 Mild intermittent asthma 09/19/2022 Mixed anxiety and depressive disorder 09/19/2022 JAMEL (obstructive sleep apnea) 09/19/2022 Morbid obesity 09/19/2022 Resolved Problems Problem Noted Date Diagnosed Date Resolved Date Obesity (BMI 30-39.9) 09/19/20222022 Encounters * This document contains information received from the source organization and may not represent a complete record from that organization. Date Type Department Care Team Description 08/03/2024 1:45 PM EDT Office Visit [address] [id number] Name, MD Sky Mild intermittent asthma without complication (Primary Dx); JAMEL (obstructive sleep apnea); Morbid obesity (CMS/HCC); Anemia, unspecified type; Attention deficit disorder, unspecified type 08/03/2024 Travel 07/31/2024 Telephone [facility] ADULT DENTAL [address] [place] [address] [place], Gi 07/31/2024 Telephone [facility] MEDICINE [address] [place] [address] Sky Dean MD CHART PREP 07/22/2024 Telephone [facility] MEDICINE [address] [place] [address] Sky Dean MD Med Refill 07/22/2024 Refill [facility] MEDICINE [address] [place] [address] Sky Dean MD 07/20/2024 Refill [facility] MEDICINE [address] [place] [address] Sky Dean MD 07/01/2024 Travel 06/23/2024 Refill [facility] MEDICINE [address] [place] [address] Sky Dean MD 06/19/2024 Population Health Risk Score [facility] () [address] [phone] Provider, Population Health Generic from Last 3 Months Immunizations Name Administration Dates Next Due Pfizer Covid-19 Vaccine 12+ 04/04/2021, Tdap 03/27/2024 Family History Medical History Relation Name Comments Diabetes Father Relation Name Status Comments Father Social History Tobacco Use Types Packs/Day Years [...] Orientation Straight 02/05/2022 10 :19 AM EDT Last Filed Vital Signs Vital Sign Reading [...] Mass Index 49.39 08/03/2024 1:34 PM EDT Plan of Treatment Upcoming Encounters Date Type Department Care Team (Late st Contact Info) Description 02/04/2025 1:00 PM EDT Office Visit [facility] ADULT DENTAL [address] [place] [address] Jefferson, Corinne Health Maintenance Due Date Last Done Comments Family Planning (PISQ) 2014 HPV Vaccines (1 - Male 3-dose series) 2014 Hepatitis B Vaccines (1 of 3 - 19+ 3-dose series) 2018 Pneumococcal Vaccine: Pediatrics (0 to 5 Years) and At-Risk Patients (6 to 49) Years) (1 of 2 - PCV) 2018 COVID-19 Vaccine (3 - season) 2023 04/04/2021, 03/14/2021 Influenza Vaccine (#1) 2023 Dental Oral Exam 07/29/2024 01/28/2024, 09/18/2022 Dental Prophylaxis 07/29/2024 01/28/2024, 10/15/2022 Depression Screening 10/16/2024 10/17/2023, 10/17/19 Dental X-Ray: Bitewings 01/28/2025 01/28/20, 08/28/2023, 07/10/2023, Additional history exists Alcohol/Substance Use Screening 08/03/2025 08/03/2024 SDOH Screening 08/03/2025 08/03/2024 Tobacco Screening 08/03/2025 08/03/2024 Dental X-Ray: Full Mouth 09/19/2025 09/18/2022 Lipid Panel 03/30/2029 03/30/2024, 07/04/2022, 09/21/2021 DTaP/Tdap/Td Vaccines (2 - Td or Tdap) 03/27/2034 03/27/2024 Zoster Vaccines (1 of 2) 2049 RSV Patients and Patients Aged 60 years or older (1 - 1-dose 75+ series) 2074 HIV Screening Completed 03/30/2024, 09/21/2021 Hepatitis C Screening Completed 03/30/2024, 022 HIB Vaccines Aged Out No longer eligi ble based on patient's age to complete this topic Hepatitis A Vaccines Aged Out No long er eligible based on patient's age to complete this topic IPV Vaccines Aged Out No longer eligi ble based on patient's age to complete this topic Meningococcal Vaccine Aged Out No michael malcolm eligible based on patient's age to complete this topic RSV under 20 months Aged Out No longe r eligible based on patient's age to complete this topic Rotavirus Vaccines Aged Out No longer eligible based on patient's age to complete this topic Procedures Procedure Name Priority Date/Time Associated Diagnosis Comments HEPATITIS C AB W/REFL TO HCV RNA, QN, PCR Routine 03/30/2024 10:25 AM EST PE (physical exam), routine HIV 1/2 ANTIGEN/ANTIBODY, FOURTH GENERATION W/RFL Routine 03/30/2024 10:25 AM EST PE (physical exam), routine LIPID PANEL, STANDARD Routine 03/30/2024 10:25 AM EST PE (physical exam), routine PROPHYLAXIS - ADULT Routine 01/28/2024 9 :00 AM EDT Dental plaque Dental calculus BITEWINGS - 4 RADIOGRAPHIC IMAGES Routine 01/28/2024 9:00 AM EDT PERIODIC ORAL EVALUATION - ESTABLISHED PATIENT Routine 01/28/2024 9:00 AM EDT Dental plaque Dental calculus Encounter for dental examination Gingivitis INTRAORAL - COMPLETE SERIES OF RADIOGRAPHIC IMAGES Routine 09/18/2022 8:00 AM EDT Dental caries Chronic pericoronitis Teeth missing Gingivitis Dental calculus from Last 3 Months or Most Recently Relevant to Health Maintenance Results * Hepatitis C Antibody with Reflex to HCV, RNA, Quantitative, Real-Time PCR (03/30/2024 10:25 AM EST) Hepatitis C Antibody Nonreactive Nonreactive [facility] Comment:Antibodies to HCV no t detected; does not exclude early acuteHCV infection. Blood Venous blood specimen / Unknown 03/30/2024 10:25 AM EST 03/30/2024 11:34 AM EST us Sky Dean MD LAB BLOOD ORDERABLES Final Resul t [facility] [address] [place] [phone] * HIV-1/2 Antigen and Antibodies, Fourth Generation, with Reflexes (03/30/2024 10:25 AM EST) HIV AB/AG Nonreactive Nonreactive [facility] Comment:HIV-1 p24 Ag and/or HIV-1/HIV-2 Ab not detected.A test result that is nonreactive does not exclude thepossibility of exposure to or infection with HIV-1 and/orHIV-2. Nonreactive results in this assay for individualswith prior exposure to HIV-1 and/or HIV-2 may be due toantigen and antibody levels that are below the limit ofdetection of this assay.The [email or web address] HIV Ag/Ab Combo assay result andsupplemental assay results should be interpreted inconjunction with the patient's clinical presentation,history and other laboratory results. If the results areinconsistent with clinical evidence, additional testing issuggested to confirm the result. Blood Venous blood specimen / Unknown 03/30/2024 10:25 AM EST 03/30/2024 11:34 AM EST us Sky Dean MD LAB BLOOD ORDERABLES Final Resul t [facility] [address] [place] [address] [phone] * Lipid Panel, Standard (03/30/2024 10:25 AM EST) Triglycerides 114 <150 mg/dL [facility] Comment:Desirable Triglyceri de: less than 150 mg/dLBorderline High Triglyceride 150-199 mg/dLHigh Triglyceride: 200-499 mg/dLVery High Triglyceride: greater than or equal to 5OO mg/dL Cholesterol 159 <200 mg/dL [facility] Comment:Desirable Cholestero l: less than 200 mg/dLBorderline High Cholesterol: 200-239 mg/dLHigh Cholesterol: greater than 239 mg/dL LDL Cholesterol Calculated 90 <100 mg/dL [facility] Comment:Desirable LDL: less than 100 mg/dLNear Optimal/Above Optimal LDL: 110- 129 mg/dLBorderline High LDL: 130-159 mg/dLHigh LDL: 160-189 mg/dLVery High LDL: greater than or equal to 190 mg/dL HDL Cholesterol 47 >40 mg/dL [facility] Comment:Desirable HDL: great er than 40 mg/dL Note: This HDL assay may give artificially low results in patients with liver disease. Blood Venous blood specimen / Unknown 03/30/2024 10:25 AM EST 03/30/2024 11:34 AM EST us Sky Name LAB BLOOD ORDERABLES Final Resul t [facility] [address] [place] [address] [phone] from Last 3 Months or Most Recently Relevant to Health Maintenance Insurance [facility] C3 DENTAL-[facility] MEDICAID STAND ADULT Care Teams Camp Head Counselor Relationship Specialty Start Date End Date Name, MD Sky [address] [place] [address] PCP - General Family Medicine 11/24/18 Hugo Bacon FNP [address] [place] [address] Nurse Practitioner Family Medicine 03/04/23
--- OUTSIDE RECORDS SUMMARY | 2024-08-03 15:08 | XMS_ITS | Encounter Summary ---
Author Organization [employer] Address [address] [place] [address] 7 [place] [address] Care Team Providers Care Jetting Machine Operator Name Role Phone Name, Sky FONSECA Primary Care Provider [phone] Hugo Bacon Unavailable Unavailable Reason for Visit * Reason Onset Date Comments Durable Medical Equipment 03/28/2023 Encounter Details Date Type Department Care Team ([facility] st Contact Info) Description 03/28/2023 Telephone [facility] MEDICINE [address] [place] [address] Name, MD Sky [address] [place] [address] Durable Medical Equipment Social History Tobacco Use Types Packs/Day Years Used Date Smoking Tobacco: Never Smokeless Tobacco: Never Alcohol Use Standard Drinks/Week Comments Yes 0 (1 standard drink = 0.6 oz pur e alcohol) socially Depression Answer Date Recorded Patient Health Questionnaire-9 Score 6 03/25/2023 Patient Health Questionnaire-9 Score 6 03/25/2023 Last PHQ-9: Questionnaire Data Not on file 1 05/26/2022 Housing Stability Answer Date Recorded What is [...] Date Recorded Patient Health Questionnaire-2 Score 0 03/25/2023 Sex and Gender Information Value Date Recorded Sex Assigned at Male 02/05/2022 10:19 AM EDT Legal Sex Male 10:19 AM EDT Gender Identity Male 02/05/2022 10:19 AM EDT Sexual Orientation Straight 02/05/2022 10 :19 AM EDT documented as of this encounter Miscellaneous Notes * Telephone Encounter - Rama Herrmann - 04/11/2023 4:07 PM EST Script for CPAP was sent to [facility] on 01/22/23. Corrections were made and resent to [facility]. * Telephone Encounter - Gera Herrmann - 03/28/2023 1:57 PM EST Tc from pt calling in stating [facility] needs script for cpap machine. Any questions please contact pt at [phone]. documented in this encounter Plan of Treatment Upcoming Encounters Date Type Department Care Team (Late st Contact Info) Description 02/04/2025 1:00 PM EDT Office Visit [facility] ADULT DENTAL [address] [place] [address] Corinne Jefferson documented as of this encounter Visit Diagnoses Not on filedocumented in this encounter Additional Health Concerns Assessment Noted Time PHQ-9 Depression Total Score: 6 03/25/20 10:32 AM EST documented as of this encounter Care Teams Jetting Machine Operator Relationship Specialty Start Date End Date Name, MD Sky [address] [place] [address] PCP - General Family Medicine 11/24/18 Hugo Bacon FNP [address] [place] [address] Nurse Practitioner Family Medicine 03/04/23 documented as of this encounter
--- OUTSIDE RECORDS SUMMARY | 2024-08-03 15:08 | XMS_ITS | Encounter Summary ---
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 documented in this encounter Plan of Treatment Upcoming Encounters Date Type Department Care Team (Late st Contact Info) Description 02/04/2025 1:00 PM EDT Office Visit [facility] [address] [place] [address] Corinne Jefferson documented as of this encounter Visit Diagnoses Not on filedocumented in this encounter Additional Health Concerns Assessment Noted Time PHQ-9 Depression Total Score: 0 10/17/19 24 3:53 PM EDT documented as of this encounter Care Teams Core Drill Operator Helper Relationship Specialty Start Date End Date Name, MD Sky [address] [place] [address] PCP - General Family Medicine 11/24/18 Hugo Bacon FNP [address] [place] [address] Nurse Practitioner Family Medicine 03/04/23 documented as of this encounter
[2024-08-03 16:31] LABS: Iron 80 mcg/dL (45-160); Percent Iron Saturation 23 % (15-50); Total Iron Binding Capacity 350 mcg/dL (228-428); Unsaturated Iron Binding 270 ug/dL
[2024-08-03 16:44] LABS: Ferritin 105 ng/mL (20-250)
[2024-08-06 10:28] LABS: Hematocrit 44.1 % (38.5-50.0); Hemoglobin 13.4 g/dL (13.2-17.1); MCH 21.4 pg (27.0-33.0); MCV 70.6 fL (80.0-100.0); RBC 6.25 Million/uL (4.20-5.80); RDW 16.8 % (11.0-15.0)
== END 2024-08-03 12:49 | disposition home or self-care (01) ==
LOC: HO.HHCL 12:48
PROVIDERS: Visit Provider Internal Medicine Geriatric Medicine
DX: D64.9 Anemia, unspecified (principal)
CPT/HCPCS: 36415; 82728; 83020; 83540; 85014; 85018; 85041